=== PATIENT | female | born 1945 | race Caucasian/White ===

== ENCOUNTER 2016-07-09 05:45 | Inpatient (IN) | payer OTHER ==
[~2016-07-09] VITALS: Ht 160 cm; Wt 70.3 kg
[2016-07-09] MEDS ORDERED: CEFAZOLIN SOD 1 GM/ ISO 50 ML PREMIX IV ONE (07:00)
[2016-07-09] MEDS ORDERED: POLYMYXIN 500,000/BACIT.10,000 UNITS in NS IRR 1 L IR ONE (08:34)
[2016-07-09] MEDS ORDERED: LR 1,000 ML IV SCH (09:18)
[2016-07-09] MEDS ORDERED: MORPHINE 2 MG/ML INJ. SYRINGE IVP PRN ×2 (09:30)
[2016-07-09] MEDS ORDERED: HYDROcodone/ACETAMIN 5-325 MG TAB (NORCO/ VICODIN) PO PRN (11:00)
[2016-07-09] MEDS ORDERED: DAPA10TA PO (11:09)
[2016-07-09] MEDS: METOCLOPRAMIDE HCL 10 MG/2 ML VIAL IVP PRN ×2 (11:30→13:29)
[2016-07-09] MEDS: MORPHINE 2 MG/ML INJ. SYRINGE IVP PRN ×2 (11:40→12:46)
[2016-07-09] MEDS ORDERED: METOCLOPRAMIDE HCL 10 MG/2 ML VIAL ONE (11:43)
[2016-07-09] MEDS ORDERED: MORPHINE 4 MG/ML INJ. SYRINGE ONE (11:43)
[2016-07-09 12:30] VITALS: BP 109/55; PULSE 80; RESP 18; TEMP 97; O2SAT 96
[2016-07-09 13:33] VITALS: BP 109/55; PULSE 80; RESP 17; TEMP 97.9; O2SAT 91
[2016-07-09] MEDS: CEFAZOLIN 1 GM IVPB PREMIX 50 ML IV SCH ×2 (15:58→23:56)
[2016-07-09] MEDS: OXYCODONE/ACETAMINOPHEN 5-325 TABLET PO PRN ×3 (15:58→21:00)
[2016-07-09] MEDS ORDERED: OMEG300C3 PO (17:26)
[2016-07-09] MEDS ORDERED: AMLO5TAB4 PO (17:26)
[2016-07-09] MEDS ORDERED: GABA-531 PO (17:26)
[2016-07-09] MEDS ORDERED: LEVO88TA5 PO (17:26)
[2016-07-09] MEDS ORDERED: PRAV20TA59 PO (17:26)
[2016-07-09] MEDS ORDERED: GLU500 PO (17:26)
[2016-07-09] MEDS ORDERED: OMEP40CA33 PO (17:26)
[2016-07-09] MEDS ORDERED: VALS160T2 PO (17:26)
[2016-07-09] MEDS ORDERED: EXEN2VIA SQ (17:26)
[2016-07-09] MEDS ORDERED: NIAC500T2 PO (17:26)
[2016-07-09] MEDS ORDERED: ESTR0.5T PO (17:26)
[2016-07-09] MEDS ORDERED: metFORMIN HCL 500 MG TABLET PO SCH (18:00)
[2016-07-09] MEDS: metFORMIN HCL 500 MG TABLET PO SCH (18:13)
[2016-07-09 19:45] VITALS: BP 130/68; PULSE 89; RESP 20; TEMP 97.2
[2016-07-09] MEDS: GABAPENTIN 300 MG CAPSULE PO SCH (20:52)
[2016-07-09] MEDS: NIACIN 500 MG CAPSULE.SA PO SCH (20:53)
[2016-07-09] MEDS: OMEPRAZOLE 20 MG CAPSULE.DR (PriLOSEC) PO SCH (20:53)
[2016-07-09] MEDS: SIMVASTATIN 10 MG TABLET PO SCH (20:54)
[2016-07-09] MEDS ORDERED: VALSARTAN 160 MG TABLET (DIOVAN) PO SCH (21:00)
[2016-07-09] MEDS ORDERED: GABAPENTIN 300 MG CAPSULE PO SCH (21:00)
[2016-07-10] MEDS: OXYCODONE/ACETAMINOPHEN 5-325 TABLET PO PRN ×3 (00:04→09:54)
[2016-07-10 00:34] VITALS: BP 117/54; PULSE 83; RESP 18; TEMP 99.3; O2SAT 92
[2016-07-10 04:00] VITALS: BP 114/54; PULSE 83; RESP 16; TEMP 99.9; O2SAT 100
[2016-07-10] MEDS ORDERED: LEVOTHYROXINE SODIUM 0.088 MG TABLET PO SCH (07:00)
[2016-07-10] MEDS ORDERED: OXYTOCIN 10 UNIT/ML VIAL IV ONE (07:45)
[2016-07-10] MEDS ORDERED: LR 1,000 ML IV.SOLN IV ONE (07:45)
[2016-07-10] MEDS ORDERED: CEFAZOLIN 1 GM IVPB PREMIX 50 ML IV ONE (07:45)
[2016-07-10] MEDS ORDERED: PROPOFOL 200MG/ 20ML VIAL (DIPRIVAN) IV ONE (07:45)
[2016-07-10] MEDS ORDERED: NS 1000 ML BAG IV ONE (07:45)
[2016-07-10] MEDS ORDERED: SEVOFLURANE 15 MIN GAS INH ONE (07:45)
[2016-07-10] MEDS ORDERED: fentaNYL CITRATE 250 MCG/5 ML AMP IV ONE (07:45)
[2016-07-10] MEDS ORDERED: MIDAZOLAM HCL 5 MG/5 ML VIAL IVP ONE (07:45)
[2016-07-10] MEDS ORDERED: ROCURONIUM BROMIDE 10 MG/ML (ZEMURON) IV ONE (07:45)
[2016-07-10] MEDS ORDERED: ONDANSETRON HCL 4 MG/2 ML VIAL IVP ONE (07:45)
[2016-07-10 08:00] VITALS: BP 117/56; PULSE 89; RESP 14; TEMP 98.1; O2SAT 98
[2016-07-10] MEDS: LEVOTHYROXINE SODIUM 0.088 MG TABLET PO SCH (08:26)
[2016-07-10] MEDS: amLODIPine BESYLATE 5 MG TABLET PO SCH (08:43)
[2016-07-10] MEDS: VALSARTAN 160 MG TABLET (DIOVAN) PO SCH (08:44)
[2016-07-10] MEDS: metFORMIN HCL 500 MG TABLET PO SCH ×2 (08:45→18:32)
[2016-07-10] MEDS: NIACIN 500 MG CAPSULE.SA PO SCH (08:45)
[2016-07-10 08:47] VITALS: BP 127/60; PULSE 95
[2016-07-10] MEDS: OMEPRAZOLE 20 MG CAPSULE.DR (PriLOSEC) PO SCH ×2 (08:58→21:26)
[2016-07-10] MEDS ORDERED: amLODIPine BESYLATE 5 MG TABLET PO SCH (09:00)
[2016-07-10] MEDS ORDERED: OMEGA PO SCH (09:00)
[2016-07-10] MEDS ORDERED: FATTY ACIDS PO SCH (09:00)
[2016-07-10] MEDS ORDERED: NON-FORMULARY MEDICATION (Dapagliflozin Propanediol (Farxiga) 10 MG) PO SCH (09:00)
[2016-07-10] MEDS ORDERED: NS 500 ML IV ONE (13:56)
[2016-07-10] MEDS ORDERED: MILK OF MAGNESIA 30 ML UDC PO PRN (14:00)
[2016-07-10] MEDS ORDERED: METOCLOPRAMIDE HCL 10 MG/2 ML VIAL IVP PRN (14:00)
[2016-07-10 14:09] VITALS: BP 131/68; PULSE 95; RESP 14; TEMP 97.8; O2SAT 91
[2016-07-10] MEDS ORDERED: SIMETHICONE 80 MG TAB.CHEW PO ONE (14:30)
[2016-07-10] MEDS ORDERED: DOCUSATE SODIUM 250 MG CAPSULE PO ONE (14:30)
[2016-07-10] MEDS: OXYCODONE/ACETAMINOPHEN *10*mg/325 mg TABLET PO PRN ×3 (14:40→22:30)
[2016-07-10] MEDS: SIMETHICONE 80 MG TAB.CHEW PO SCH ×2 (14:43→21:26)
[2016-07-10] MEDS: 0.45% NACL 1,000 ML IV SCH (16:13)
[2016-07-10 19:50] VITALS: BP 125/71; PULSE 101; RESP 18; TEMP 98.9; O2SAT 100
[2016-07-10] MEDS: GABAPENTIN 300 MG CAPSULE PO SCH (21:26)
[2016-07-10] MEDS: SIMVASTATIN 10 MG TABLET PO SCH (21:26)
[2016-07-11] VITALS: BP_SYST 118; BP_SYST 127; BP_DIAS 68; BP_DIAS 74; PULSE 106; PULSE 99; RESP 16; TEMP 99; TEMP 99.2; O2SAT 93; O2SAT 95
[2016-07-11] MEDS: OXYCODONE/ACETAMINOPHEN *10*mg/325 mg TABLET PO PRN ×3 (02:36→12:40)
[2016-07-11] MEDS: 0.45% NACL 1,000 ML IV SCH ×2 (02:42→12:42)
[2016-07-11 04:26] VITALS: BP 126/62; PULSE 107; RESP 18; TEMP 98.5; O2SAT 94
[2016-07-11 06:25] LABS: BASOPHILS # (AUTO) 0.1 K/uL (0.0-0.2); EOSINOPHILS # (AUTO) 0.1 K/uL (0.0-0.4); EOSINOPHILS % (AUTO) 0.6 % (0.0-4.0); MONOCYTES # (AUTO) 1.1 K/uL (0.0-1.0)
[2016-07-11 06:43] LABS: BASOPHILS % (AUTO) 0.3 % (0.0-2.0); HEMATOCRIT 40.6 % (36-48); HEMOGLOBIN 13.3 g/dL (12.0-16.0); LYMPHOCYTES # (AUTO) 1.7 K/uL (1.0-5.5); LYMPHOCYTES % (AUTO) 9.3 % (20.5-51.5); MEAN CORPUSCULAR HEMOGLOBIN 30 pg (27-31); MEAN CORPUSCULAR HGB CONC 33 % (32-36); MEAN CORPUSCULAR VOLUME 91 fL (79.0-98.0); MONOCYTES % (AUTO) 6.4 % (1.7-9.3); NEUTROPHILS % (AUTO) 83.4 % (40.0-70.0); PLATELET COUNT (AUTO) 277 K/uL (130-430); RED BLOOD CELL COUNT(AUTO) 4.45 MIL/uL (4.2-6.2); RED CELL DISTRIBUTION WIDTH 13.2 % (9.0-15.0)
[2016-07-11] MEDS: LEVOTHYROXINE SODIUM 0.088 MG TABLET PO SCH (06:46)
[2016-07-11 07:01] LABS: ANION GAP 11 (5-15); CALCIUM 8.4 mg/dL (8.4-11.0); CHLORIDE 100 mmol/L (98-107); CREATININE 0.96 mg/dL (0.55-1.30); GLUCOSE 165 mg/dL (70-99); SODIUM SERUM 135 mmol/L (136-145); UREA NITROGEN, BLOOD 13 mg/dL (8-21)
[2016-07-11 08:00] VITALS: BP 119/59; PULSE 96; RESP 18; TEMP 96.4; O2SAT 92
[2016-07-11] MEDS: OMEPRAZOLE 20 MG CAPSULE.DR (PriLOSEC) PO SCH ×2 (09:26→21:29)
[2016-07-11] MEDS: DOCUSATE SODIUM 250 MG CAPSULE PO SCH (09:26)
[2016-07-11] MEDS: metFORMIN HCL 500 MG TABLET PO SCH ×2 (09:26→18:13)
[2016-07-11] MEDS: VALSARTAN 160 MG TABLET (DIOVAN) PO SCH (09:27)
[2016-07-11] MEDS: SIMETHICONE 80 MG TAB.CHEW PO SCH ×3 (09:27→21:28)
[2016-07-11] MEDS: amLODIPine BESYLATE 5 MG TABLET PO SCH (09:29)
[2016-07-11 12:30] VITALS: BP 127/53; PULSE 94; RESP 17; TEMP 97; O2SAT 99
[2016-07-11] MEDS ORDERED: MILK OF MAGNESIA 30 ML UDC PO ONE (15:30)
[2016-07-11 16:34] VITALS: BP 145/68; PULSE 98; RESP 22; TEMP 96.8; O2SAT 97
[2016-07-11] MEDS: OXYCODONE/ACETAMINOPHEN 5-325 TABLET PO PRN ×2 (17:10→20:32)
[2016-07-11 19:20] VITALS: BP 141/67; PULSE 104; RESP 19; TEMP 98.6; O2SAT 92
[2016-07-11] MEDS: GABAPENTIN 300 MG CAPSULE PO SCH (21:28)
[2016-07-11] MEDS: SIMVASTATIN 10 MG TABLET PO SCH (21:28)
[2016-07-12] VITALS: BP 150/78; PULSE 110; RESP 20; TEMP 98.3; O2SAT 93
[2016-07-12 04:00] VITALS: BP 125/64; PULSE 102; RESP 18; TEMP 98.1; O2SAT 93
[2016-07-12] MEDS: LEVOTHYROXINE SODIUM 0.088 MG TABLET PO SCH (06:34)
[2016-07-12] MEDS: VALSARTAN 160 MG TABLET (DIOVAN) PO SCH (09:00)
[2016-07-12] MEDS: amLODIPine BESYLATE 5 MG TABLET PO SCH (09:00)
[2016-07-12] MEDS: POLYETHYLENE GLYCOL 3350, 17 GM/ POWD.PACK PO SCH ×2 (09:00→09:48)
[2016-07-12] MEDS: metFORMIN HCL 500 MG TABLET PO SCH ×2 (09:44→17:42)
[2016-07-12] MEDS: SIMETHICONE 80 MG TAB.CHEW PO SCH ×3 (09:45→22:08)
[2016-07-12] MEDS: OMEPRAZOLE 20 MG CAPSULE.DR (PriLOSEC) PO SCH ×2 (09:45→22:08)
[2016-07-12] MEDS: OXYCODONE/ACETAMINOPHEN *10*mg/325 mg TABLET PO PRN ×2 (09:47→13:54)
[2016-07-12] MEDS ORDERED: DEXTROSE 50% JECT 50 ML DISP.SYRIN IVP PRN (11:00)
[2016-07-12] MEDS ORDERED: MINERAL OIL 30 ML UDC PO ONE (11:00)
[2016-07-12 12:00] VITALS: BP 97/68; PULSE 107; RESP 18; TEMP 97.8; O2SAT 93
[2016-07-12] MEDS: DOCUSATE SODIUM 250 MG CAPSULE PO SCH (13:54)
[2016-07-12] MEDS: IBUPROFEN 600 MG TABLET PO SCH ×3 (13:55→23:35)
[2016-07-12 16:04] VITALS: BP 113/59; PULSE 79; RESP 18; TEMP 98; O2SAT 92
[2016-07-12] MEDS: MILK OF MAGNESIA 30 ML UDC PO SCH ×3 (16:15→22:08)
[2016-07-12 20:00] VITALS: BP 123/73; PULSE 85; RESP 16; TEMP 97; O2SAT 92
[2016-07-12] MEDS: SIMVASTATIN 10 MG TABLET PO SCH (22:08)
[2016-07-12] MEDS: GABAPENTIN 300 MG CAPSULE PO SCH (22:08)
[2016-07-12] MEDS: INSULIN REGULAR, HUMAN 100 UNITS/ML, 10 ML VIAL (novoLIN R) SUBCUT PRN (22:10)
[2016-07-13] VITALS (7 sets, daily range): BP systolic 109–134; BP diastolic 51–71; PULSE 72–90; RESP 14–20; TEMP 97–97.8; O2SAT 90–95
[2016-07-13] MEDS: MILK OF MAGNESIA 30 ML UDC PO SCH (01:12)
[2016-07-13] MEDS: LEVOTHYROXINE SODIUM 0.088 MG TABLET PO SCH (06:08)
[2016-07-13] MEDS: IBUPROFEN 600 MG TABLET PO SCH ×4 (06:11→23:14)
[2016-07-13 06:42] LABS: BASOPHILS % (AUTO) 0.2 % (0.0-2.0); EOSINOPHILS # (AUTO) 0.5 K/uL (0.0-0.4); EOSINOPHILS % (AUTO) 3.5 % (0.0-4.0); HEMATOCRIT 36.4 % (36-48); HEMOGLOBIN 12.1 g/dL (12.0-16.0); LYMPHOCYTES # (AUTO) 1.2 K/uL (1.0-5.5); MEAN CORPUSCULAR HEMOGLOBIN 30 pg (27-31); MEAN CORPUSCULAR HGB CONC 33 % (32-36); MEAN CORPUSCULAR VOLUME 92 fL (79.0-98.0); MONOCYTES # (AUTO) 0.9 K/uL (0.0-1.0); NEUTROPHILS # (AUTO) 10.3 K/uL (1.8-7.7); NEUTROPHILS % (AUTO) 80.3 % (40.0-70.0); PLATELET COUNT (AUTO) 259 K/uL (130-430); RED BLOOD CELL COUNT(AUTO) 3.97 MIL/uL (4.2-6.2); RED CELL DISTRIBUTION WIDTH 12.9 % (9.0-15.0); WHITE BLOOD COUNT (AUTO) 12.9 K/uL (4.8-10.8)
[2016-07-13 06:51] LABS: ALANINE AMINOTRANSFERASE 9 U/L (12-78); ALBUMIN 2.6 g/dL (3.4-4.8); ASPARTATE AMINOTRANSFERASE 10 U/L (10-37); CALCIUM 8.8 mg/dL (8.4-11.0); CHLORIDE 106 mmol/L (98-107); CREATININE 0.92 mg/dL (0.55-1.30); GLUCOSE 164 mg/dL (70-99); POTASSIUM 4.8 mmol/L (3.5-5.1); SODIUM SERUM 137 mmol/L (136-145); TOTAL BILIRUBIN 0.5 mg/dL (0.0-1.0); TOTAL PROTEIN, SERUM 6.6 g/dL (6.4-8.3); UREA NITROGEN, BLOOD 14 mg/dL (8-21)
[2016-07-13 07:01] LABS: ANION GAP < 3 (5-15)
[2016-07-13] MEDS: POLYETHYLENE GLYCOL 3350, 17 GM/ POWD.PACK PO SCH (08:39)
[2016-07-13] MEDS: OMEPRAZOLE 20 MG CAPSULE.DR (PriLOSEC) PO SCH ×2 (08:39→21:32)
[2016-07-13] MEDS: amLODIPine BESYLATE 5 MG TABLET PO SCH (08:40)
[2016-07-13] MEDS: SIMETHICONE 80 MG TAB.CHEW PO SCH ×3 (08:40→21:32)
[2016-07-13] MEDS: DOCUSATE SODIUM 250 MG CAPSULE PO SCH (08:40)
[2016-07-13] MEDS: VALSARTAN 160 MG TABLET (DIOVAN) PO SCH (08:40)
[2016-07-13] MEDS: metFORMIN HCL 500 MG TABLET PO SCH ×2 (08:41→17:34)
[2016-07-13 18:34] LABS: BILIRUBIN,URINE NEGATIVE (NEGATIVE); BLOOD, URINE 2+ (NEGATIVE); CLARITY/URINE SL HAZY (CLEAR); COLOR,URINE YELLOW (YELLOW); GLUCOSE,URINE 3+ (NEGATIVE); KETONES,URINE 1+ (NEGATIVE); LEUKOCYTE ESTERASE ,URINE NEGATIVE (NEGATIVE); NITRITE, URINE NEGATIVE (NEGATIVE); PH,URINE 7.5 (5.0-8.0); PROTEIN URINE 2+ (NEGATIVE); UROBILINOGEN,URINE 0.2 (0.2-1.0)
[2016-07-13 19:04] LABS: BACTERIA,URINE FEW /HPF (None Seen); RBC,URINE 20-50 /HPF (0-3)
[2016-07-13 19:05] LABS: MUCUS,URINE 1+ /LPF (None Seen)
[2016-07-13] MEDS: SIMVASTATIN 10 MG TABLET PO SCH (21:32)
[2016-07-13] MEDS: GABAPENTIN 300 MG CAPSULE PO SCH (21:32)
[2016-07-13] MEDS: INSULIN REGULAR, HUMAN 100 UNITS/ML, 10 ML VIAL (novoLIN R) SUBCUT PRN (21:34)
[2016-07-14] MEDS: OXYCODONE/ACETAMINOPHEN *10*mg/325 mg TABLET PO PRN (00:03)
[2016-07-14 04:25] VITALS: BP 109/60; PULSE 81; RESP 16; TEMP 97; O2SAT 94
[2016-07-14] MEDS: IBUPROFEN 600 MG TABLET PO SCH ×3 (05:48→17:33)
[2016-07-14] MEDS: LEVOTHYROXINE SODIUM 0.088 MG TABLET PO SCH (06:13)
[2016-07-14 08:00] VITALS: BP 137/69; PULSE 82; RESP 18; TEMP 97.1; O2SAT 100
[2016-07-14] MEDS: POLYETHYLENE GLYCOL 3350, 17 GM/ POWD.PACK PO SCH (08:41)
[2016-07-14] MEDS: DOCUSATE SODIUM 250 MG CAPSULE PO SCH (08:41)
[2016-07-14] MEDS: metFORMIN HCL 500 MG TABLET PO SCH ×2 (08:45→17:34)
[2016-07-14] MEDS: amLODIPine BESYLATE 5 MG TABLET PO SCH (08:46)
[2016-07-14] MEDS: SIMETHICONE 80 MG TAB.CHEW PO SCH ×2 (08:46→14:28)
[2016-07-14] MEDS: OMEPRAZOLE 20 MG CAPSULE.DR (PriLOSEC) PO SCH (08:47)
[2016-07-14] MEDS: VALSARTAN 160 MG TABLET (DIOVAN) PO SCH (08:47)
[2016-07-14] MEDS: OXYCODONE/ACETAMINOPHEN 5-325 TABLET PO PRN (08:52)
[2016-07-14 12:00] VITALS: BP 129/62; PULSE 68; RESP 18; TEMP 96.9; O2SAT 93
[2016-07-14 13:01] VITALS: BP 125/60; PULSE 80; RESP 18; TEMP 97.5; O2SAT 95
[2016-07-14 16:00] VITALS: BP 126/51; PULSE 71; RESP 18; TEMP 97.5; O2SAT 97
== END 2016-07-14 18:55 | disposition home or self-care (01) | DRG 748 ==
LOC: SDS 05:45 → SMU 05:45 → STU 11:28 → SMU 11:30 → SDS 07-10 09:32 → SMU 07-10 23:21
PROVIDERS: ADMIT Internal Medicine; ATTEND Specialist
PROC: 0DNS4ZZ (ICD-10-PCS; 2016-07-09)
PROC: 0JQC0ZZ Repair Pelvic Region Subcutaneous Tissue and Fascia, Open Approach (ICD-10-PCS; 2016-07-09)
PROC: 0USG4ZZ Reposition Vagina, Percutaneous Endoscopic Approach (ICD-10-PCS; principal; 2016-07-09 07:30)
DX: N99.3 Prolapse of vaginal vault after hysterectomy (principal); E03.9 Hypothyroidism, unspecified; E11.9 Type 2 diabetes mellitus without complications; E78.00 Pure hypercholesterolemia, unspecified; I10 Essential (primary) hypertension; D72.829 Elevated white blood cell count, unspecified; K59.00 Constipation, unspecified; M19.90 Unspecified osteoarthritis, unspecified site; K21.9 Gastro-esophageal reflux disease without esophagitis; N73.6 Female pelvic peritoneal adhesions (postinfective); Z79.890 Hormone replacement therapy
CPT/HCPCS: 36415; 71020-TC; 80048; 80053; 81000-TC; 82962; 85025; 87081; 87086; 88302; C1781; E0190; J0690; J2250; J2270; J2405; J2590; J2704; J2765; J3010; J7030; J7040; J7050; J7120